=== PATIENT | female | born 1965 | race African-American/Black ===

== ENCOUNTER 2019-07-29 23:03 | Emergency (ER) | payer MEDICAID ==
[~2019-07-29] VITALS: Ht 157.5 cm; Wt 68.9 kg
[~2019-07-29 23:03] MED LIST: IBUPROFEN600 MG PO; NORCO 5-325 TA1 EACH ORAL
--- NOTE | 2019-07-29 23:10 | NUR ---
ED Nurse Note: PT AMBULATED TO ED C/O ABDOINAL, BACK, AND LOWER LEG PAIN. PT STATES SHES BEEN HAVING ON GOING PAIN SINCE CHEMOTHERAPY. PT HAS HISTORY OF CEVICAL CANCER. PT SHOWS NO ACUTES SIGNS OF DISTRESS AT THE MOMENT. PT APPEARS MILDLY ANXIOUS AND STATES CANCER HAS BEEN VERY STRESSFUL FOR HER.
[2019-07-29 23:20] VITALS: BP 132/82
[2019-07-30] MEDS ORDERED: Isovue-300 100ml vial INJ PRN
[2019-07-30 00:25] LABS: ANION GAP 9 mmol/L (5-15); BASOPHILS % (AUTO) 1.3 % (0.0-2.0); BLOOD UREA NITROGEN 7 mg/dL (7-18); CALCIUM 9.2 MG/DL (8.5-10.1); CARBON DIOXIDE 25 MMOL/L (21-32); CHLORIDE 106 MMOL/L (98-107); CREATININE 0.8 MG/DL (0.55-1.30); EOSINOPHILS % (AUTO) 4.7 % (0.0-3.0); HEMOGLOBIN 11.1 G/DL (12.0-16.0); LYMPHOCYTES % (AUTO) 16.1 % (20.0-45.0); MEAN CORPUSCULAR VOLUME 84 FL (80-99); MONOCYTES % (AUTO) 10.6 % (1.0-10.0); NEUTROPHILS % (AUTO) 67.3 % (45.0-75.0); PLATELET COUNT 277 K/UL (150-450); POTASSIUM 3.7 MMOL/L (3.5-5.1); RED BLOOD COUNT 4.15 M/UL (4.20-5.40); RED CELL DISTRIBUTION WIDTH 15.2 % (11.6-14.8); SODIUM 140 MMOL/L (136-145)
[2019-07-30 00:38] LABS: ALANINE AMINOTRANSFERASE 11 U/L (12-78); ALBUMIN 2.7 G/DL (3.4-5.0); ALBUMIN/GLOBULIN RATIO 0.6 (1.0-2.7); ALKALINE PHOSPHATASE 68 U/L (46-116); ASPARTATE AMINO TRANSFERASE 24 U/L (15-37); BILIRUBIN,TOTAL 0.3 MG/DL (0.2-1.0); CKMB 0.9 NG/ML (0.0-3.6); CREATINE KINASE 29 U/L (26-308)
--- NOTE | 2019-07-30 01:02 | NUR ---
ED Nurse Note: PT LEFT FOR CT
[2019-07-30 01:30] VITALS: BP 127/70
--- NOTE | 2019-07-30 01:33 | NUR ---
ED Nurse Note: pt returned from CT
--- NOTE | 2019-07-30 02:21 | Emergency Room Report ---
History of Present Illness General Chief Complaint: Pain Source: Patient Present Illness HPI 53-year-old female presents ED for evaluation. Complaining of chest pain redness of breath and abdominal pain which started tonight. occcured at rest. Denies SOB time but does have some abdominal pain. Dull, 7 out of 10, nonradiating. States she does have history of cervical cancer metastasis. States that she was receiving chemotherapy and radiation treatments until April but stopped at this time. Is looking for a second opinion for treatment. Denies nausea or vomiting. Denies fevers or chills. No other aggravating relieving factors. Denies any other associated symptoms Allergies: Coded Allergies: LATEX (Verified Allergy, Severe, Hives, 12/26/13) GLATIRAMER (Verified Allergy, Unknown, 12/26/13) PENICILLINS (Verified Allergy, Unknown, 12/26/13) Patient History Past Medical History: HTN, other - cervical cancer. MS Past Surgical History: none Pertinent Family History: none Social History: Denies: smoking, alcohol use, drug use Now: No Immunizations: UTD Reviewed Nursing Documentation: PMH: Agreed; PSxH: Agreed Nursing Documentation-PMH Past Medical History: No History, Except For Hx Hypertension: Yes Hx Cancer: Yes - cervical cancer Hx Neurological Problems: Yes - multiple sclerosis Review of Systems All Other Systems: negative except mentioned in HPI Physical Exam Vital Signs Date Time Temp Pulse Resp B/P (MAP) Pulse Ox O2 Delivery O2 Flow Rate FiO2 07/29/19 23:17 98.2 101 18 132/82 (99) 100 Room Air Sp02 EP Interpretation: reviewed, normal General Appearance: no apparent distress, alert, GCS 15, non-toxic Head: normocephalic, atraumatic Eyes: bilateral eye normal inspection, bilateral eye PERRL ENT: hearing grossly normal, normal pharynx, no angioedema, normal voice Neck: full range of motion, supple/symm/no masses Respiratory: chest non-tender, lungs clear, normal breath sounds, speaking full sentences Cardiovascular #1: regular rate, rhythm, no edema Cardiovascular #2: 2+ carotid (R), 2+ carotid (L), 2+ radial (R), 2+ radial (L) , 2+ dorsalis pedis (R), 2+ dorsalis pedis (L) Gastrointestinal: normal bowel sounds, soft, non-distended, no guarding, no rebound, tenderness Rectal: deferred Genitourinary: normal inspection, no CVA tenderness Musculoskeletal: back normal, gait/station normal, normal range of motion, non- tender Neurologic: alert, oriented x3, responsive, motor strength/tone normal, sensory intact, speech normal Psychiatric: judgement/insight normal, memory normal, mood/affect normal, no suicidal/homicidal ideation Reflexes: 3+ bicep (R), 3+ bicep (L), 3+ tricep (R), 3+ tricep (L), 3+ knee (R) , 3+ knee (L) Lymphatic: no adenopathy Medical Decision Making Diagnostic Impression: Primary Impression: Pleural effusion Additional Impressions: SOB (shortness of breath) Cervical cancer Qualified Codes: C53.9 - Malignant neoplasm of cervix uteri, unspecified ER Course Hospital Course 53 yo F presents to ED c/o SOB. h/o cervical cancer Differential diagnoses include: NH/unstable angina, CHF, pneumonia Clinical course Patient placed on stretcher. on monitoring tech. After initial history and physical I ordered labs, EKG, CT Chest/Abd/Pelvis labs reviewed- no leukocytosis, hb/hct stable, electrolytes ok, trop negative, BNP within normal limits EKG - NSR no acute ischemic changes interpreted by me CT Chest/Abd/Pelvis -bilateral pleural effusion right more than left, no acute abdominal pathology Discussed findings with patient. Patient does feel short of breath. We will admit because of insurance patient will be transferred I. I feel this is a highly complex case requiring extensive working including EKG/Rhythm strip, Xray/CT/US, Blood/urine lab work, repeat exams while in ED, and administration of strong opiates/narcotics for pain control, admission to hospital or close patient follow up. Diagnosis - pleural effusion, SOB, cervical cancer transferred in serious condition Labs Test 07/30/19 00:02 White Blood Count 7.0 K/UL (4.8-10.8) Red Blood Count 4.15 M/UL (4.20-5.40) Hemoglobin 11.1 G/DL (12.0-16.0) Hematocrit 35.0 % (37.0-47.0) Mean Corpuscular Volume 84 FL (80-99) Mean Corpuscular Hemoglobin 26.8 PG (27.0-31.0) Mean Corpuscular Hemoglobin Concent 31.8 G/DL (32.0-36.0) Red Cell Distribution Width 15.2 % (11.6-14.8) Platelet Count 277 K/UL (150-450) Mean Platelet Volume 6.1 FL (6.5-10.1) Neutrophils (%) (Auto) 67.3 % (45.0-75.0) Lymphocytes (%) (Auto) 16.1 % (20.0-45.0) Monocytes (%) (Auto) 10.6 % (1.0-10.0) Eosinophils (%) (Auto) 4.7 % (0.0-3.0) Basophils (%) (Auto) 1.3 % (0.0-2.0) Sodium Level 140 MMOL/L (136-145) Potassium Level 3.7 MMOL/L (3.5-5.1) Chloride Level 106 MMOL/L (98-107) Carbon Dioxide Level 25 MMOL/L (21-32) Anion Gap 9 mmol/L (5-15) Blood Urea Nitrogen 7 mg/dL (7-18) Creatinine 0.8 MG/DL (0.55-1.30) Estimat Glomerular Filtration Rate > 60 mL/min (>60) Glucose Level 113 MG/DL (74-106) Calcium Level 9.2 MG/DL (8.5-10.1) Total Bilirubin 0.3 MG/DL (0.2-1.0) Aspartate Amino Transf (AST/SGOT) 24 U/L (15-37) Alanine Aminotransferase (ALT/SGPT) 11 U/L (12-78) Alkaline Phosphatase 68 U/L (46-116) Total Creatine Kinase 29 U/L (26-308) Creatine Kinase MB 0.9 NG/ML (0.0-3.6) Creatine Kinase MB Relative Index 3.1 Troponin I 0.010 ng/mL (0.000-0.056) Pro-B-Type Natriuretic Peptide 204 pg/mL (0-125) Total Protein 7.3 G/DL (6.4-8.2) Albumin 2.7 G/DL (3.4-5.0) Globulin 4.6 g/dL Albumin/Globulin Ratio 0.6 (1.0-2.7) EKG Diagnostic Results Rate: normal Rhythm: NSR ST Segments: no acute changes ASA given to the pt in ED: No Rhythm Strip Diag. Results EP Interpretation: yes Rhythm: NSR, no PVC's, no ectopy CT/MRI/US Diagnostic Results CT/MRI/US Diagnostic Results : Imaging Test Ordered: CT Chest/A/P Impression EXAM: CT Abdomen and Pelvis With Intravenous Contrast CLINICAL HISTORY: PAIN TECHNIQUE: Axial computed tomography images of the abdomen and pelvis with intravenous contrast. CTDI is 21 mGy and DLP is 1396 mGy-cm. One or more of the following dose reduction techniques were used: automated exposure control, adjustment of the mA and/or kV according to patient size, use of iterative reconstruction technique. COMPARISON: None FINDINGS: Lung bases: Unremarkable. No mass. No consolidation. ABDOMEN: Liver: Hepatosplenomegaly. Gallbladder and bile ducts: Unremarkable. No calcified stones. No ductal dilation. Pancreas: Unremarkable. No mass. No ductal dilation. Spleen: See above. Adrenals: Unremarkable. No mass. Kidneys and ureters: Unremarkable. No solid mass. No hydronephrosis. Stomach and bowel: Multiple segments of nonspecific mild small bowel wall thickening. Negative for high-grade obstruction or pneumatosis. PELVIS: Appendix: No findings to suggest acute appendicitis. Bladder: Unremarkable. No mass. Reproductive: Uterus is markedly enlarged containing multiple heterogeneous masses and including partially exophytic masses. Some of the masses are partially calcified suggesting fibroids with the central and largest portion of the mass being indeterminate. Approximate measurements of the uterus including mass is 20.8 cm cranial caudad, 18 cm transverse and 11.5 cm AP. Abnormal soft tissue and fluid attenuation extends along the broad ligaments bilaterally. Marked stranding and nodularity in the pelvis adjacent and posterior to the uterus/cervix. Abnormal soft tissue and fluid attenuation in the presacral space. ABDOMEN and PELVIS: Intraperitoneal space: See below. Bones/joints: No acute fracture. No dislocation. Soft tissues: Unremarkable. Vasculature: Unremarkable. No abdominal aortic aneurysm. Lymph nodes: There is extensive retroperitoneal lymphadenopathy and significant enlarged mesenteric lymph nodes. There is some omental caking in the right lateral omentum. Nodularity in the mesentery likely metastatic implants. Other findings: Patient became ill during contrast injection which was stopped and was not resumed for approximately 4 minutes. Study is essentially a delayed excretory phase study. IMPRESSION: Large heterogeneous mass involving the uterus. Omental, mesenteric and lymph node metastases. Small bowel wall thickening indeterminate for enteritis or neoplastic infiltration. EXAM: CT Chest With Intravenous Contrast CLINICAL HISTORY: PAIN TECHNIQUE: Axial computed tomography images of the chest with intravenous contrast. CTDI is see above mGy and DLP is see above mGy-cm. One or more of the following dose reduction techniques were used: automated exposure control, adjustment of the mA and/or kV according to patient size, use of iterative reconstruction technique. COMPARISON: None FINDINGS: Artifacts: Motion degraded study. Lungs: And bibasilar dependent atelectasis. Borderline cardiac enlargement and small pericardial effusion. Bibasilar dependent atelectasis right greater than left. Pleural space: Bilateral pleural effusions right greater than left. No pneumothorax. Heart: Unremarkable. No cardiomegaly. No significant pericardial effusion. Bones/joints: Unremarkable. No acute fracture. No dislocation. Soft tissues: Unremarkable. Vasculature: Unremarkable. No thoracic aortic aneurysm. Lymph nodes: Unremarkable. No enlarged lymph nodes. Other findings: Study was essentially without contrast as the patient became sick during the infusion and there was significant delay prior to image acquisition. IMPRESSION: Bilateral pleural effusions and bibasilar atelectasis. Last Vital Signs Date Time Temp Pulse Resp B/P (MAP) Pulse Ox O2 Delivery O2 Flow Rate FiO2 07/30/19 01:30 98.5 90 19 127/70 100 Room Air Status: improved Disposition: XFER SHT-TRM HOSP Condition: Serious Referrals: NOT CHOSEN IPA/,REFERRING (PCP) Francois Agustin MD Jul 30, 2019 02:21
--- NOTE | 2019-07-30 02:30 | NUR ---
ED Nurse Note: ERMD AT BEDSIDE EXPLAINING CT RESULTS AND PLAN OF CARE OPTIONS
[2019-07-30 03:09] VITALS: BP 116/80
[2019-07-30] MEDS ORDERED: Morphine Sulfate 4mg/ml Inj (IV USE ONLY) ONE (03:58)
[2019-07-30] MEDS ORDERED: Morphine Sulfate 4mg/ml Inj (IV USE ONLY) IVP ONE (04:00)
--- NOTE | 2019-07-30 04:17 | NUR ---
ED Nurse Note: telephone report given to CINDY Holland from [facility]
--- NOTE | 2019-07-30 04:45 | NUR ---
[facility] ambulance is here now.
[2019-07-30 04:47] VITALS: BP 132/82
--- NOTE | 2019-07-30 04:47 | NUR ---
ED Nurse Note: [facility] AT BEDSIDE. PT IS AOX4, ON ROOM, SR, VSS. PT SHOWS NO ACUTES SIGNS OF DISTRESS. ALL BELONGINGS HAVE BEEN GIVEN TO SISTER EFRAIN.
--- NOTE | 2019-07-31 11:14 | Cardiology Report ---
APPROVED REPORT EKG Measurement Heart [id number] Normal sinus rhythm Cannot rule out Anterior infarct, age undetermined Repolarization abnormality Abnormal ECG
== END 2019-07-30 04:47 | disposition short-term general hospital (02) ==
LOC: EMR 23:32
DX: J90 Pleural effusion, not elsewhere classified (principal); R06.02 Shortness of breath; C53.9 Malignant neoplasm of cervix uteri, unspecified; Z88.0 Allergy status to penicillin; Z91.040 Latex allergy status; I10 Essential (primary) hypertension; G35 Multiple sclerosis
CPT/HCPCS: 36415; 71260; 74177; 80053; 82550; 82553; 83880; 84484; 85025; 93005; 96374; J2270; Q9967; Z7502; 99284